=== PATIENT | female | born 1985 | race Caucasian/White ===

== ENCOUNTER 2017-06-04 16:59 | Inpatient (IN) | payer MEDICARE, MEDICAID ==
[~2017-06-04] VITALS: Ht 170.2 cm; Wt 132.3 kg
[2017-06-04] MEDS ORDERED: DILTIAZEM 125 MG in DEXTROSE 5% 100 ML IV SCH (17:18)
[2017-06-04] MEDS ORDERED: DILTIAZEM 5 MG/ML, 5ML IV ONE (17:30)
[2017-06-04] MEDS ORDERED: SODIUM CHLORIDE FLUSH 10ML SYR IVF ONE (17:30)
[2017-06-04 17:44] LABS: ABG COLLECTION SITE RIGHT BRACHIAL
[2017-06-04 17:46] LABS: HEMOGLOBIN 14.3 g/dL (11.7-16.4); WHITE BLOOD COUNT 17.8 x10^3/uL (3.4-10)
[2017-06-04] MEDS ORDERED: MORPHINE SULFATE 4 MG/ML, 1ML ONE (17:46)
[2017-06-04 17:54] LABS: ASPARTATE AMINO TRANSFERASE 73 U/L (15-37); BLOOD UREA NITROGEN 19 mg/dL (7-18)
[2017-06-04] MEDS ORDERED: ONDANSETRON 2MG/ML, 2ML ONE (17:56)
[2017-06-04] MEDS ORDERED: DILTIAZEM 5 MG/ML, 5ML ONE (17:57)
[2017-06-04] MEDS ORDERED: ONDANSETRON 2MG/ML, 2ML IVPush ONE (18:00)
[2017-06-04] MEDS ORDERED: MORPHINE SULFATE 4 MG/ML, 1ML IVPush PRN (18:00)
[2017-06-04] MEDS ORDERED: SODIUM CHLORIDE FLUSH 10ML SYR IVF PRN (19:00)
[2017-06-04] MEDS ORDERED: AZITHROMYCIN 500 MG in SODIUM CHLORIDE 0.9% 250 ML IVPB ONE (19:00)
[2017-06-04] MEDS ORDERED: CEFTRIAXONE PMX 1GM/50ML 50 ML IVPB ONE (19:00)
[2017-06-04] MEDS ORDERED: SODIUM CHLORIDE 0.9% 1,000 ML IV SCH (19:19)
[2017-06-04] MEDS ORDERED: AZITHROMYCIN 500 MG in SODIUM CHLORIDE 0.9% 250 ML IV SCH (19:30)
[2017-06-04] MEDS ORDERED: POLYETHYLENE GLYCOL 17 GM PACKET PO PRN (19:30)
[2017-06-04] MEDS ORDERED: ENOXAPARIN 40 MG/0.4 ML SQ SCH (19:30)
[2017-06-04] MEDS ORDERED: ACETAMINOPHEN 325 MG TABLET PO PRN (19:30)
[2017-06-04] MEDS ORDERED: DOCUSATE 100 MG CAPSULE PO PRN (19:30)
[2017-06-04] MEDS ORDERED: morphine SULFATE 10 MG/ML, 1ML IVPush PRN (19:30)
[2017-06-04] MEDS ORDERED: CEFTRIAXONE PMX 1GM/50ML 50 ML IV SCH (19:30)
[2017-06-04] MEDS ORDERED: CEFTRIAXONE PMX 1GM/50ML 50 ML ONE (19:43)
[2017-06-04 20:30] VITALS: BP 133/96
[2017-06-04 21:00] VITALS: BP 130/91
[2017-06-04] MEDS: OXYcodone IR 5MG TABLET PO PRN ×2 (21:28→22:46)
[2017-06-04] MEDS: FAMOTIDINE 20 MG TABLET PO SCH (21:29)
[2017-06-04] MEDS: INSULIN ASPART 100 UNITS/ML, PEN SQ-INSULIN SCH (21:30)
[2017-06-04] MEDS: ONDANSETRON 2MG/ML, 2ML IVPush PRN (22:45)
[2017-06-05] MEDS ORDERED: MAGN400T36 PO (03:40)
[2017-06-05] MEDS ORDERED: POTA20LI GT (03:40)
[2017-06-05] MEDS ORDERED: APIX5TAB PO (03:40)
[2017-06-05] MEDS ORDERED: ERGO500018 PO (03:40)
[2017-06-05] MEDS ORDERED: BUSP5TAB2 PO (03:40)
[2017-06-05] MEDS ORDERED: LACT1CAP20 PO (03:40)
[2017-06-05] MEDS ORDERED: DIGO250T86 GT (03:40)
[2017-06-05] MEDS ORDERED: OXYC5TAB2 PO (03:40)
[2017-06-05] MEDS ORDERED: LORA10TA3 PO (03:40)
[2017-06-05] MEDS ORDERED: BACL-19 PO (03:40)
[2017-06-05] MEDS ORDERED: FERR300L PO (03:40)
[2017-06-05] MEDS ORDERED: FURO-92 PO (03:40)
[2017-06-05] MEDS ORDERED: CALC-451 PO (03:40)
[2017-06-05] MEDS ORDERED: TRAM50TA2 PO (03:40)
[2017-06-05] MEDS ORDERED: GABA300S GT (03:40)
[2017-06-05] MEDS ORDERED: DEXL30CA2 PO (03:40)
[2017-06-05] MEDS ORDERED: DILT120T4 PO (03:40)
[2017-06-05] MEDS ORDERED: [UNRECOGNIZED DRUG - CODE] PO (03:40)
[2017-06-05] MEDS ORDERED: ONDA4TAB7 PO (03:40)
[2017-06-05] MEDS ORDERED: VENL37.52 PO (03:40)
[2017-06-05] MEDS ORDERED: MICO142C TP (03:40)
[2017-06-05] MEDS ORDERED: CLOT15CR5 TP (03:40)
[2017-06-05] MEDS ORDERED: ALPR0.25 PO (03:40)
[2017-06-05] MEDS ORDERED: MV-M1TAB3 GT (03:40)
[2017-06-05] MEDS ORDERED: METO50TA3 GT (03:40)
[2017-06-05] MEDS: DILTIAZEM 125 MG in SODIUM CHLORIDE 0.9% 100 ML IV PRN ×2 (04:14→12:49)
[2017-06-05 04:30] VITALS: BP 128/76
[2017-06-05 04:44] LABS: HEMATOCRIT 41.7 % (34.6-47.8); HEMOGLOBIN 13.4 g/dL (11.7-16.4); WHITE BLOOD COUNT 21.7 x10^3/uL (3.4-10)
[2017-06-05 04:54] LABS: ASPARTATE AMINO TRANSFERASE 58 U/L (15-37); BLOOD UREA NITROGEN 15 mg/dL (7-18)
[2017-06-05 05:45] LABS: ABG COLLECTION SITE RIGHT RADIAL; COLLATERAL CIRCULATION TESTING NORMAL
[2017-06-05] MEDS: INSULIN ASPART 100 UNITS/ML, PEN SQ-INSULIN SCH ×4 (06:25→21:40)
[2017-06-05] MEDS ORDERED: VANCOMYCIN PER PHARMACY MC PRN (07:30)
[2017-06-05] MEDS ORDERED: PHARMACOKINETIC MONITORING MC PRN (07:30)
[2017-06-05] MEDS ORDERED: VANCOMYCIN 1,400 MG in SODIUM CHLORIDE 0.9% 250 ML IV SCH (08:00)
[2017-06-05] MEDS ORDERED: OXYcodone IR 5MG TABLET PO PRN (08:30)
[2017-06-05] MEDS ORDERED: LORATADINE 10 MG TABLET PO SCH (09:00)
[2017-06-05] MEDS ORDERED: DIGOXIN 0.25 MG TABLET GT SCH (09:00)
[2017-06-05] MEDS ORDERED: FERROUS SULFATE 220 MG/5 ML ORAL SOL PO SCH (09:00)
[2017-06-05] MEDS ORDERED: SENNA/DOCUSATE TABLET PO SCH (09:00)
[2017-06-05] MEDS: DEXLANSOPRAZOLE 30 MG PO SCH (09:00)
[2017-06-05] MEDS: LACTOBACILLUS 1GM/ PACKET PO SCH (09:00)
[2017-06-05] MEDS: OXYcodone IR 5MG TABLET PO PRN ×3 (10:50→20:37)
[2017-06-05] MEDS: GABAPENTIN 250 MG/5 ML ORAL SOL GT SCH ×3 (10:59→20:30)
[2017-06-05] MEDS: APIXABAN 5 MG TABLET PO SCH ×2 (11:00→20:29)
[2017-06-05] MEDS: FAMOTIDINE 20 MG TABLET PO SCH ×2 (11:00→20:30)
[2017-06-05] MEDS: BUSPIRONE 5 MG TABLET PO SCH ×3 (11:01→20:29)
[2017-06-05] MEDS: BACLOFEN 10 MG TABLET PO SCH ×2 (11:01→20:29)
[2017-06-05] MEDS: METOPROLOL TARTRATE 50 MG TABLET GT SCH ×2 (11:01→20:29)
[2017-06-05] MEDS: CLOTRIMAZOLE CRM 1%, 15GM TP SCH ×2 (11:08→20:30)
[2017-06-05] MEDS: DILTIAZEM 120 MG TABLET PO SCH ×3 (11:08→20:29)
[2017-06-05] MEDS: VENLAFAXINE XR 37.5MG CAP.ER.24H PO SCH ×2 (11:09→20:30)
[2017-06-05] MEDS: MICONAZOLE CRM 2%, 15GM TP SCH ×2 (11:09→20:30)
[2017-06-05] MEDS: ONDANSETRON 2MG/ML, 2ML IVPush PRN (12:16)
[2017-06-05] MEDS: PIPERACILLIN/TAZO/PMX 3.375GM 50 ML IV SCH ×2 (12:54→20:29)
[2017-06-05] MEDS: LINEZOLID PMX 600MG/300ML 300 ML IV SCH (14:52)
[2017-06-05] MEDS ORDERED: ALBUTEROL SULFATE 2.5 MG/3 ML NPPB SCH (15:00)
[2017-06-05] MEDS ORDERED: ALBUTEROL/IPRATROPIUM 2.5MG/0.5MG, 3 ML ONE (18:26)
[2017-06-05] MEDS: ALBUTEROL SULFATE 2.5 MG/3 ML NPPB SCH ×2 (19:11→21:00)
[2017-06-06] MEDS: PIPERACILLIN/TAZO/PMX 3.375GM 50 ML IV SCH ×4 (01:04→23:22)
[2017-06-06] MEDS: LINEZOLID PMX 600MG/300ML 300 ML IV SCH ×2 (01:31→14:31)
[2017-06-06] MEDS: OXYcodone IR 5MG TABLET PO PRN ×2 (03:24→09:16)
[2017-06-06 04:00] VITALS: BP 125/60
[2017-06-06 04:45] LABS: HEMATOCRIT 40.9 % (34.6-47.8); HEMOGLOBIN 13.1 g/dL (11.7-16.4)
[2017-06-06 04:50] LABS: BLOOD UREA NITROGEN 12 mg/dL (7-18)
[2017-06-06] MEDS: INSULIN ASPART 100 UNITS/ML, PEN SQ-INSULIN SCH ×4 (05:21→21:00)
[2017-06-06] MEDS: DILTIAZEM 120 MG TABLET PO SCH ×4 (05:21→21:00)
[2017-06-06 05:39] LABS: ABG COLLECTION SITE RIGHT RADIAL; COLLATERAL CIRCULATION TESTING NORMAL
[2017-06-06] MEDS ORDERED: DIGOXIN PED GT SCH (09:00)
[2017-06-06] MEDS: FERROUS SULFATE 220 MG/5 ML ORAL SOL PEG SCH (09:00)
[2017-06-06] MEDS ORDERED: DOCUSATE 50 MG/5 ML, 10ML UDC PEG PRN ×2 (09:00→09:30)
[2017-06-06] MEDS: ALBUTEROL SULFATE 2.5 MG/3 ML NPPB SCH (09:00)
[2017-06-06] MEDS ORDERED: FAMOTIDINE 40 MG/5 ML ORAL SUSP PO SCH (09:00)
[2017-06-06] MEDS ORDERED: FAMOTIDINE 40 MG/5 ML ORAL SUSP PEG SCH (09:00)
[2017-06-06] MEDS: LACTOBACILLUS 1GM/ PACKET PO SCH (09:00)
[2017-06-06] MEDS ORDERED: SENNA 176 MG/5 ML ORAL SOL PEG SCH (09:00)
[2017-06-06] MEDS: DEXLANSOPRAZOLE 30 MG PO SCH (09:00)
[2017-06-06] MEDS ORDERED: CETIRIZINE 1 MG/ML ORAL SOL PEG SCH (09:00)
[2017-06-06] MEDS ORDERED: ACETAMINOPHEN 650 MG/20.3 ML UDC PO PRN (09:00)
[2017-06-06] MEDS: GABAPENTIN 250 MG/5 ML ORAL SOL GT SCH ×3 (09:19→23:19)
[2017-06-06] MEDS: APIXABAN 5 MG TABLET PO SCH ×2 (09:22→23:20)
[2017-06-06] MEDS: METOPROLOL TARTRATE 50 MG TABLET GT SCH ×2 (09:23→23:20)
[2017-06-06] MEDS: BACLOFEN 10 MG TABLET PO SCH ×2 (09:25→23:19)
[2017-06-06] MEDS: BUSPIRONE 5 MG TABLET PO SCH ×3 (09:25→23:20)
[2017-06-06] MEDS: VENLAFAXINE XR 37.5MG CAP.ER.24H PO SCH ×2 (09:26→21:00)
[2017-06-06] MEDS: CLOTRIMAZOLE CRM 1%, 15GM TP SCH ×2 (09:27→23:20)
[2017-06-06] MEDS: MICONAZOLE CRM 2%, 15GM TP SCH ×2 (09:27→23:21)
[2017-06-06 10:44] LABS: ABG COLLECTION SITE RIGHT RADIAL; COLLATERAL CIRCULATION TESTING NORMAL
[2017-06-06 17:17] LABS: ABG COLLECTION SITE LEFT RADIAL; COLLATERAL CIRCULATION TESTING NORMAL
[2017-06-06] MEDS ORDERED: ALBUTEROL SULFATE 2.5 MG/3 ML ONE (18:23)
[2017-06-06] MEDS: FAMOTIDINE 40 MG/5 ML ORAL SUSP PEG SCH (21:00)
[2017-06-07] MEDS: PIPERACILLIN/TAZO/PMX 3.375GM 50 ML IV SCH ×4 (01:49→19:40)
[2017-06-07] MEDS: LINEZOLID PMX 600MG/300ML 300 ML IV SCH ×2 (02:24→14:16)
[2017-06-07 03:59] VITALS: BP_SYST 104; BP_SYST 83; BP_DIAS 42; BP_DIAS 51
[2017-06-07 04:31] LABS: ABG COLLECTION SITE LEFT RADIAL; COLLATERAL CIRCULATION TESTING NORMAL
[2017-06-07] MEDS: DILTIAZEM 120 MG TABLET PO SCH ×4 (05:49→20:29)
[2017-06-07] MEDS: SENNA 176 MG/5 ML ORAL SOL PEG SCH (08:47)
[2017-06-07] MEDS: GABAPENTIN 250 MG/5 ML ORAL SOL GT SCH ×3 (08:47→20:29)
[2017-06-07] MEDS: CETIRIZINE 1 MG/ML ORAL SOL PEG SCH (08:47)
[2017-06-07] MEDS: FAMOTIDINE 40 MG/5 ML ORAL SUSP PEG SCH ×2 (08:48→20:29)
[2017-06-07] MEDS: LACTOBACILLUS 1GM/ PACKET PO SCH (08:48)
[2017-06-07] MEDS: METOPROLOL TARTRATE 50 MG TABLET GT SCH ×2 (08:48→20:30)
[2017-06-07] MEDS: FERROUS SULFATE 220 MG/5 ML ORAL SOL PEG SCH (08:48)
[2017-06-07] MEDS: BACLOFEN 10 MG TABLET PO SCH ×2 (08:49→20:29)
[2017-06-07] MEDS: BUSPIRONE 5 MG TABLET PO SCH ×3 (08:49→20:33)
[2017-06-07] MEDS: DIGOXIN PED GT SCH (08:50)
[2017-06-07] MEDS: VENLAFAXINE XR 37.5MG CAP.ER.24H PO SCH ×2 (08:50→20:34)
[2017-06-07] MEDS: DEXLANSOPRAZOLE 30 MG PO SCH (09:00)
[2017-06-07] MEDS: MICONAZOLE CRM 2%, 15GM TP SCH ×2 (09:02→20:34)
[2017-06-07] MEDS: CLOTRIMAZOLE CRM 1%, 15GM TP SCH ×2 (09:02→20:34)
[2017-06-07] MEDS: INSULIN ASPART 100 UNITS/ML, PEN SQ-INSULIN SCH ×4 (10:45→21:26)
[2017-06-07 12:02] LABS: ABG COLLECTION SITE RIGHT RADIAL; COLLATERAL CIRCULATION TESTING NORMAL
[2017-06-07] MEDS: OXYcodone 5 MG/5 ML ORAL.SOL UDC PEG PRN ×2 (12:33→19:39)
[2017-06-07] MEDS: APIXABAN 5 MG TABLET PO SCH ×2 (17:40→20:30)
[2017-06-07] MEDS: ONDANSETRON 2MG/ML, 2ML IVPush PRN (20:30)
[2017-06-08] MEDS: PIPERACILLIN/TAZO/PMX 3.375GM 50 ML IV SCH ×4 (01:31→20:05)
[2017-06-08] MEDS: LINEZOLID PMX 600MG/300ML 300 ML IV SCH ×2 (02:27→14:54)
[2017-06-08 04:24] VITALS: BP 104/69
[2017-06-08 04:32] LABS: HEMATOCRIT 40.3 % (34.6-47.8); HEMOGLOBIN 12.8 g/dL (11.7-16.4); WHITE BLOOD COUNT 10.5 x10^3/uL (3.4-10)
[2017-06-08 04:39] LABS: BLOOD UREA NITROGEN 12 mg/dL (7-18)
[2017-06-08 04:42] LABS: ASPARTATE AMINO TRANSFERASE 38 U/L (15-37)
[2017-06-08] MEDS: DILTIAZEM 120 MG TABLET PO SCH ×2 (05:50→09:01)
[2017-06-08] MEDS: OXYcodone 5 MG/5 ML ORAL.SOL UDC PEG PRN ×3 (06:07→20:05)
[2017-06-08] MEDS: INSULIN ASPART 100 UNITS/ML, PEN SQ-INSULIN SCH ×4 (06:39→21:00)
[2017-06-08] MEDS: CLOTRIMAZOLE CRM 1%, 15GM TP SCH ×2 (08:56→21:28)
[2017-06-08] MEDS: MICONAZOLE CRM 2%, 15GM TP SCH ×2 (08:56→21:28)
[2017-06-08] MEDS: CETIRIZINE 1 MG/ML ORAL SOL PEG SCH (08:56)
[2017-06-08] MEDS: GABAPENTIN 250 MG/5 ML ORAL SOL GT SCH ×3 (08:56→21:26)
[2017-06-08] MEDS: SENNA 176 MG/5 ML ORAL SOL PEG SCH (08:57)
[2017-06-08] MEDS: LACTOBACILLUS 1GM/ PACKET PO SCH (08:57)
[2017-06-08] MEDS: BUSPIRONE 5 MG TABLET PO SCH ×3 (08:57→21:25)
[2017-06-08] MEDS: BACLOFEN 10 MG TABLET PO SCH ×2 (08:57→21:25)
[2017-06-08] MEDS: APIXABAN 5 MG TABLET PO SCH ×2 (08:57→21:25)
[2017-06-08] MEDS: VENLAFAXINE XR 37.5MG CAP.ER.24H PO SCH ×2 (08:58→21:00)
[2017-06-08] MEDS: DIGOXIN PED GT SCH (09:00)
[2017-06-08] MEDS: DEXLANSOPRAZOLE 30 MG PO SCH (09:00)
[2017-06-08] MEDS: FERROUS SULFATE 220 MG/5 ML ORAL SOL PEG SCH (09:00)
[2017-06-08] MEDS: METOPROLOL TARTRATE 50 MG TABLET GT SCH ×2 (09:01→21:26)
[2017-06-08] MEDS: FAMOTIDINE 40 MG/5 ML ORAL SUSP PEG SCH ×2 (09:02→21:26)
[2017-06-08] MEDS ORDERED: FUROSEMIDE 40 MG/4 ML IV ONE (09:30)
[2017-06-08] MEDS: DILTIAZEM 60 MG TABLET PO SCH ×2 (16:00→21:00)
[2017-06-09] MEDS: PIPERACILLIN/TAZO/PMX 3.375GM 50 ML IV SCH (01:09)
[2017-06-09] MEDS: LINEZOLID PMX 600MG/300ML 300 ML IV SCH ×2 (02:22→14:37)
[2017-06-09 04:00] VITALS: BP 109/62
[2017-06-09 04:29] LABS: HEMATOCRIT 40.9 % (34.6-47.8); WHITE BLOOD COUNT 10.2 x10^3/uL (3.4-10)
[2017-06-09 04:37] LABS: BLOOD UREA NITROGEN 13 mg/dL (7-18)
[2017-06-09 04:40] LABS: ASPARTATE AMINO TRANSFERASE 80 U/L (15-37)
[2017-06-09] MEDS: DILTIAZEM 60 MG TABLET PO SCH ×4 (06:03→20:53)
[2017-06-09] MEDS: INSULIN ASPART 100 UNITS/ML, PEN SQ-INSULIN SCH ×4 (06:03→21:00)
[2017-06-09] MEDS: VENLAFAXINE XR 37.5MG CAP.ER.24H PO SCH ×2 (08:36→20:54)
[2017-06-09] MEDS: APIXABAN 5 MG TABLET PO SCH ×2 (08:37→20:53)
[2017-06-09] MEDS: LACTOBACILLUS 1GM/ PACKET PO SCH (08:37)
[2017-06-09] MEDS: FERROUS SULFATE 220 MG/5 ML ORAL SOL PEG SCH (08:38)
[2017-06-09] MEDS: BACLOFEN 10 MG TABLET PO SCH ×2 (08:38→20:53)
[2017-06-09] MEDS: CETIRIZINE 1 MG/ML ORAL SOL PEG SCH (08:38)
[2017-06-09] MEDS: BUSPIRONE 5 MG TABLET PO SCH ×3 (08:38→20:53)
[2017-06-09] MEDS: METOPROLOL TARTRATE 50 MG TABLET GT SCH ×2 (08:38→20:54)
[2017-06-09] MEDS: GABAPENTIN 250 MG/5 ML ORAL SOL GT SCH ×3 (08:39→20:53)
[2017-06-09] MEDS: FAMOTIDINE 40 MG/5 ML ORAL SUSP PEG SCH ×2 (08:39→20:53)
[2017-06-09] MEDS: SENNA 176 MG/5 ML ORAL SOL PEG SCH (08:39)
[2017-06-09] MEDS: DIGOXIN PED GT SCH (08:39)
[2017-06-09] MEDS: MICONAZOLE CRM 2%, 15GM TP SCH ×2 (08:40→21:00)
[2017-06-09] MEDS: CLOTRIMAZOLE CRM 1%, 15GM TP SCH ×2 (08:40→20:55)
[2017-06-09] MEDS: OXYcodone 5 MG/5 ML ORAL.SOL UDC PEG PRN ×3 (08:41→20:54)
[2017-06-09] MEDS: MEROPENEM 1 GM in SODIUM CHLORIDE 0.9% 100 ML IV SCH ×2 (08:46→16:28)
[2017-06-09] MEDS: DEXLANSOPRAZOLE 30 MG PO SCH (09:00)
[2017-06-09] MEDS: ONDANSETRON 2MG/ML, 2ML IVPush PRN (16:28)
[2017-06-10] MEDS: MEROPENEM 1 GM in SODIUM CHLORIDE 0.9% 100 ML IV SCH ×3 (00:50→16:09)
[2017-06-10] MEDS: LINEZOLID PMX 600MG/300ML 300 ML IV SCH ×2 (02:04→14:52)
[2017-06-10] MEDS: OXYcodone 5 MG/5 ML ORAL.SOL UDC PEG PRN ×3 (02:47→16:09)
[2017-06-10 04:00] VITALS: BP 113/68
[2017-06-10 04:26] LABS: HEMOGLOBIN 12.8 g/dL (11.7-16.4); WHITE BLOOD COUNT 10.5 x10^3/uL (3.4-10)
[2017-06-10 04:33] LABS: BLOOD UREA NITROGEN 17 mg/dL (7-18)
[2017-06-10] MEDS: DILTIAZEM 60 MG TABLET PO SCH ×4 (05:12→21:15)
[2017-06-10] MEDS: INSULIN ASPART 100 UNITS/ML, PEN SQ-INSULIN SCH ×4 (05:12→20:52)
[2017-06-10 05:41] LABS: ABG COLLECTION SITE RIGHT RADIAL; COLLATERAL CIRCULATION TESTING NORMAL
[2017-06-10 05:49] LABS: FIO2 50 %
[2017-06-10] MEDS: GABAPENTIN 250 MG/5 ML ORAL SOL GT SCH ×3 (11:09→21:19)
[2017-06-10] MEDS: LACTOBACILLUS 1GM/ PACKET PO SCH (11:09)
[2017-06-10] MEDS: CETIRIZINE 1 MG/ML ORAL SOL PEG SCH (11:10)
[2017-06-10] MEDS: FAMOTIDINE 40 MG/5 ML ORAL SUSP PEG SCH ×2 (11:10→21:19)
[2017-06-10] MEDS: SENNA 176 MG/5 ML ORAL SOL PEG SCH (11:10)
[2017-06-10] MEDS: FERROUS SULFATE 220 MG/5 ML ORAL SOL PEG SCH (11:11)
[2017-06-10] MEDS: DIGOXIN PED GT SCH (11:11)
[2017-06-10] MEDS: VENLAFAXINE XR 37.5MG CAP.ER.24H PO SCH ×2 (11:11→21:18)
[2017-06-10] MEDS: BUSPIRONE 5 MG TABLET PO SCH ×3 (11:12→21:16)
[2017-06-10] MEDS: BACLOFEN 10 MG TABLET PO SCH ×2 (11:12→21:15)
[2017-06-10] MEDS: APIXABAN 5 MG TABLET PO SCH ×2 (11:13→21:15)
[2017-06-10] MEDS: CLOTRIMAZOLE CRM 1%, 15GM TP SCH ×2 (11:14→21:19)
[2017-06-10] MEDS: METOPROLOL TARTRATE 50 MG TABLET GT SCH ×2 (11:14→21:16)
[2017-06-10] MEDS: MICONAZOLE CRM 2%, 15GM TP SCH ×2 (11:16→21:19)
[2017-06-11] MEDS: MEROPENEM 1 GM in SODIUM CHLORIDE 0.9% 100 ML IV SCH ×3 (01:14→17:28)
[2017-06-11] MEDS: OXYcodone 5 MG/5 ML ORAL.SOL UDC PEG PRN ×3 (01:33→15:22)
[2017-06-11] MEDS: LINEZOLID PMX 600MG/300ML 300 ML IV SCH ×2 (02:28→14:00)
[2017-06-11 04:36] LABS: HEMATOCRIT 39.1 % (34.6-47.8); HEMOGLOBIN 12.3 g/dL (11.7-16.4); WHITE BLOOD COUNT 9.5 x10^3/uL (3.4-10)
[2017-06-11 04:43] LABS: BLOOD UREA NITROGEN 19 mg/dL (7-18)
[2017-06-11 04:50] LABS: ASPARTATE AMINO TRANSFERASE 118 U/L (15-37)
[2017-06-11] MEDS: DILTIAZEM 60 MG TABLET PO SCH (06:26)
[2017-06-11 06:28] VITALS: BP 130/75
[2017-06-11] MEDS: INSULIN ASPART 100 UNITS/ML, PEN SQ-INSULIN SCH ×4 (07:00→21:00)
[2017-06-11 07:41] LABS: ABG COLLECTION SITE LEFT RADIAL; COLLATERAL CIRCULATION TESTING NORMAL
[2017-06-11] MEDS: AcetaZOLAMIDE INJ 500 MG IVPush SCH ×2 (09:07→21:48)
[2017-06-11] MEDS: GABAPENTIN 250 MG/5 ML ORAL SOL GT SCH ×3 (09:09→21:48)
[2017-06-11] MEDS: FERROUS SULFATE 220 MG/5 ML ORAL SOL PEG SCH (09:09)
[2017-06-11] MEDS: FAMOTIDINE 40 MG/5 ML ORAL SUSP PEG SCH ×2 (09:09→21:49)
[2017-06-11] MEDS: SENNA 176 MG/5 ML ORAL SOL PEG SCH (09:09)
[2017-06-11] MEDS: CETIRIZINE 1 MG/ML ORAL SOL PEG SCH (09:09)
[2017-06-11] MEDS: DIGOXIN PED GT SCH (09:09)
[2017-06-11] MEDS: BACLOFEN 10 MG TABLET PO SCH ×2 (09:10→21:49)
[2017-06-11] MEDS: LACTOBACILLUS 1GM/ PACKET PO SCH (09:10)
[2017-06-11] MEDS: VENLAFAXINE XR 37.5MG CAP.ER.24H PO SCH ×2 (09:10→21:50)
[2017-06-11] MEDS: CLOTRIMAZOLE CRM 1%, 15GM TP SCH ×2 (09:11→21:50)
[2017-06-11] MEDS: METOPROLOL TARTRATE 50 MG TABLET GT SCH ×2 (09:11→21:49)
[2017-06-11] MEDS: BUSPIRONE 5 MG TABLET PO SCH ×3 (09:11→21:50)
[2017-06-11] MEDS: APIXABAN 5 MG TABLET PO SCH ×2 (09:11→21:49)
[2017-06-11] MEDS: MICONAZOLE CRM 2%, 15GM TP SCH ×2 (09:11→21:50)
[2017-06-11] MEDS: ONDANSETRON 2MG/ML, 2ML IVPush PRN (18:22)
[2017-06-12] MEDS: MEROPENEM 1 GM in SODIUM CHLORIDE 0.9% 100 ML IV SCH ×3 (01:45→16:09)
[2017-06-12] MEDS: OXYcodone 5 MG/5 ML ORAL.SOL UDC PEG PRN ×4 (01:56→20:26)
[2017-06-12] MEDS: LINEZOLID PMX 600MG/300ML 300 ML IV SCH ×2 (02:41→14:06)
[2017-06-12 04:54] LABS: ABG COLLECTION SITE RIGHT RADIAL; COLLATERAL CIRCULATION TESTING NORMAL
[2017-06-12 05:00] LABS: HEMATOCRIT 42.7 % (34.6-47.8); HEMOGLOBIN 13.3 g/dL (11.7-16.4); WHITE BLOOD COUNT 11.4 x10^3/uL (3.4-10)
[2017-06-12 05:06] LABS: BLOOD UREA NITROGEN 16 mg/dL (7-18)
[2017-06-12 05:10] LABS: ASPARTATE AMINO TRANSFERASE 146 U/L (15-37)
[2017-06-12] MEDS: METOPROLOL TARTRATE 50 MG TABLET GT SCH ×2 (06:49→21:25)
[2017-06-12] MEDS: INSULIN ASPART 100 UNITS/ML, PEN SQ-INSULIN SCH ×4 (07:00→21:00)
[2017-06-12] MEDS: BUSPIRONE 5 MG TABLET PO SCH ×3 (07:55→21:25)
[2017-06-12] MEDS: CETIRIZINE 1 MG/ML ORAL SOL PEG SCH (07:56)
[2017-06-12] MEDS: DIGOXIN PED GT SCH (07:56)
[2017-06-12] MEDS: LACTOBACILLUS 1GM/ PACKET PO SCH (07:56)
[2017-06-12] MEDS: GABAPENTIN 250 MG/5 ML ORAL SOL GT SCH ×3 (07:56→21:41)
[2017-06-12] MEDS: FAMOTIDINE 40 MG/5 ML ORAL SUSP PEG SCH ×2 (07:56→21:25)
[2017-06-12] MEDS: SENNA 176 MG/5 ML ORAL SOL PEG SCH (07:56)
[2017-06-12] MEDS: FERROUS SULFATE 220 MG/5 ML ORAL SOL PEG SCH (07:56)
[2017-06-12] MEDS: VENLAFAXINE XR 37.5MG CAP.ER.24H PO SCH ×2 (07:56→21:26)
[2017-06-12] MEDS: APIXABAN 5 MG TABLET PO SCH ×2 (07:57→21:26)
[2017-06-12] MEDS: BACLOFEN 10 MG TABLET PO SCH ×2 (08:08→21:26)
[2017-06-12] MEDS: DILTIAZEM 30 MG TABLET PO SCH ×3 (08:41→20:05)
[2017-06-12] MEDS: MICONAZOLE CRM 2%, 15GM TP SCH ×2 (08:41→21:27)
[2017-06-12] MEDS: CLOTRIMAZOLE CRM 1%, 15GM TP SCH ×2 (09:00→21:28)
[2017-06-12] MEDS: ACETAMINOPHEN 650 MG/20.3 ML UDC PEG PRN (17:24)
[2017-06-13] MEDS: MEROPENEM 1 GM in SODIUM CHLORIDE 0.9% 100 ML IV SCH ×3 (01:19→17:02)
[2017-06-13] MEDS: LINEZOLID PMX 600MG/300ML 300 ML IV SCH ×2 (02:15→15:06)
[2017-06-13] MEDS: DILTIAZEM 30 MG TABLET PO SCH ×4 (02:15→21:46)
[2017-06-13 04:37] LABS: HEMATOCRIT 39.7 % (34.6-47.8); HEMOGLOBIN 12.6 g/dL (11.7-16.4); WHITE BLOOD COUNT 9.8 x10^3/uL (3.4-10)
[2017-06-13 04:49] LABS: ASPARTATE AMINO TRANSFERASE 152 U/L (15-37); BLOOD UREA NITROGEN 19 mg/dL (7-18)
[2017-06-13] MEDS: INSULIN ASPART 100 UNITS/ML, PEN SQ-INSULIN SCH ×4 (07:00→21:00)
[2017-06-13] MEDS: OXYcodone 5 MG/5 ML ORAL.SOL UDC PEG PRN ×4 (07:12→21:46)
[2017-06-13 08:54] LABS: ABG COLLECTION SITE RIGHT RADIAL; COLLATERAL CIRCULATION TESTING NORMAL
[2017-06-13] MEDS: FAMOTIDINE 40 MG/5 ML ORAL SUSP PEG SCH ×2 (09:32→21:47)
[2017-06-13] MEDS: GABAPENTIN 250 MG/5 ML ORAL SOL GT SCH ×3 (09:32→21:47)
[2017-06-13] MEDS: SENNA 176 MG/5 ML ORAL SOL PEG SCH (09:32)
[2017-06-13] MEDS: LACTOBACILLUS 1GM/ PACKET PO SCH (09:32)
[2017-06-13] MEDS: FERROUS SULFATE 220 MG/5 ML ORAL SOL PEG SCH (09:32)
[2017-06-13] MEDS: CETIRIZINE 1 MG/ML ORAL SOL PEG SCH (09:32)
[2017-06-13] MEDS: DIGOXIN PED GT SCH (09:32)
[2017-06-13] MEDS: METOPROLOL TARTRATE 50 MG TABLET GT SCH ×2 (09:33→21:46)
[2017-06-13] MEDS: APIXABAN 5 MG TABLET PO SCH ×2 (09:33→21:46)
[2017-06-13] MEDS: BUSPIRONE 5 MG TABLET PO SCH ×3 (09:34→21:46)
[2017-06-13] MEDS: CLOTRIMAZOLE CRM 1%, 15GM TP SCH ×2 (09:34→21:48)
[2017-06-13] MEDS: MICONAZOLE CRM 2%, 15GM TP SCH ×2 (09:34→21:48)
[2017-06-13] MEDS: BACLOFEN 10 MG TABLET PO SCH ×2 (09:50→21:46)
[2017-06-13] MEDS: VENLAFAXINE XR 37.5MG CAP.ER.24H PO SCH ×2 (09:51→21:47)
[2017-06-13] MEDS: ONDANSETRON 2MG/ML, 2ML IVPush PRN (10:01)
[2017-06-13] MEDS: methylPREDNISolone SOD SUCC 125 MG/2 ML IVPush SCH ×3 (11:48→23:48)
[2017-06-13] MEDS: ACETAMINOPHEN 650 MG/20.3 ML UDC PEG PRN (20:36)
[2017-06-14] MEDS: MEROPENEM 1 GM in SODIUM CHLORIDE 0.9% 100 ML IV SCH ×3 (01:02→17:59)
[2017-06-14] MEDS: DILTIAZEM 30 MG TABLET PO SCH ×4 (02:17→21:12)
[2017-06-14] MEDS: LINEZOLID PMX 600MG/300ML 300 ML IV SCH ×2 (02:18→14:49)
[2017-06-14 04:30] LABS: ABG COLLECTION SITE RIGHT RADIAL; COLLATERAL CIRCULATION TESTING NORMAL
[2017-06-14] MEDS: methylPREDNISolone SOD SUCC 125 MG/2 ML IVPush SCH ×4 (05:47→23:55)
[2017-06-14] MEDS: INSULIN ASPART 100 UNITS/ML, PEN SQ-INSULIN SCH ×4 (05:49→21:20)
[2017-06-14] MEDS: SENNA 176 MG/5 ML ORAL SOL PEG SCH ×2 (09:00→09:12)
[2017-06-14] MEDS: ONDANSETRON 2MG/ML, 2ML IVPush PRN (09:02)
[2017-06-14] MEDS: OXYcodone 5 MG/5 ML ORAL.SOL UDC PEG PRN ×4 (09:09→23:56)
[2017-06-14] MEDS: FAMOTIDINE 40 MG/5 ML ORAL SUSP PEG SCH ×2 (09:09→21:13)
[2017-06-14] MEDS: VENLAFAXINE XR 37.5MG CAP.ER.24H PO SCH ×2 (09:09→21:16)
[2017-06-14] MEDS: DIGOXIN PED GT SCH (09:10)
[2017-06-14] MEDS: CETIRIZINE 1 MG/ML ORAL SOL PEG SCH (09:12)
[2017-06-14] MEDS: FERROUS SULFATE 220 MG/5 ML ORAL SOL PEG SCH (09:12)
[2017-06-14] MEDS: CLOTRIMAZOLE CRM 1%, 15GM TP SCH ×2 (09:13→21:30)
[2017-06-14] MEDS: MICONAZOLE CRM 2%, 15GM TP SCH ×2 (09:13→21:30)
[2017-06-14] MEDS: GABAPENTIN 250 MG/5 ML ORAL SOL GT SCH ×3 (09:13→21:13)
[2017-06-14] MEDS: APIXABAN 5 MG TABLET PO SCH ×2 (09:14→21:12)
[2017-06-14] MEDS: LACTOBACILLUS 1GM/ PACKET PO SCH (09:14)
[2017-06-14] MEDS: BACLOFEN 10 MG TABLET PO SCH ×2 (09:14→21:12)
[2017-06-14] MEDS: BUSPIRONE 5 MG TABLET PO SCH ×3 (09:14→21:12)
[2017-06-14] MEDS: METOPROLOL TARTRATE 50 MG TABLET GT SCH ×2 (09:14→21:12)
[2017-06-15] MEDS: MEROPENEM 1 GM in SODIUM CHLORIDE 0.9% 100 ML IV SCH ×3 (03:01→17:00)
[2017-06-15] MEDS: LINEZOLID PMX 600MG/300ML 300 ML IV SCH ×2 (03:56→13:24)
[2017-06-15 04:32] LABS: HEMATOCRIT 41.5 % (34.6-47.8); WHITE BLOOD COUNT 10.1 x10^3/uL (3.4-10)
[2017-06-15] MEDS: DILTIAZEM 30 MG TABLET PO SCH ×4 (04:39→21:58)
[2017-06-15] MEDS: OXYcodone 5 MG/5 ML ORAL.SOL UDC PEG PRN ×4 (04:43→18:44)
[2017-06-15 04:44] LABS: BLOOD UREA NITROGEN 24 mg/dL (7-18)
[2017-06-15 04:59] LABS: ASPARTATE AMINO TRANSFERASE 143 U/L (15-37)
[2017-06-15] MEDS: methylPREDNISolone SOD SUCC 125 MG/2 ML IVPush SCH (05:57)
[2017-06-15] MEDS: INSULIN ASPART 100 UNITS/ML, PEN SQ-INSULIN SCH ×4 (08:50→21:00)
[2017-06-15] MEDS: DIGOXIN PED GT SCH (08:56)
[2017-06-15] MEDS: METOPROLOL TARTRATE 50 MG TABLET GT SCH ×2 (08:56→21:57)
[2017-06-15] MEDS: FAMOTIDINE 40 MG/5 ML ORAL SUSP PEG SCH ×2 (08:57→21:58)
[2017-06-15] MEDS: FERROUS SULFATE 220 MG/5 ML ORAL SOL PEG SCH (08:57)
[2017-06-15] MEDS: SENNA 176 MG/5 ML ORAL SOL PEG SCH (08:57)
[2017-06-15] MEDS: BUSPIRONE 5 MG TABLET PO SCH ×3 (08:58→21:57)
[2017-06-15] MEDS: CETIRIZINE 1 MG/ML ORAL SOL PEG SCH (08:58)
[2017-06-15] MEDS: GABAPENTIN 250 MG/5 ML ORAL SOL GT SCH ×3 (08:58→21:58)
[2017-06-15] MEDS: BACLOFEN 10 MG TABLET PO SCH ×2 (08:59→21:58)
[2017-06-15] MEDS: VENLAFAXINE XR 37.5MG CAP.ER.24H PO SCH ×2 (08:59→21:58)
[2017-06-15] MEDS: LACTOBACILLUS 1GM/ PACKET PO SCH (08:59)
[2017-06-15] MEDS: APIXABAN 5 MG TABLET PO SCH ×2 (08:59→21:57)
[2017-06-15] MEDS: ONDANSETRON 2MG/ML, 2ML IVPush PRN (09:15)
[2017-06-15] MEDS: CLOTRIMAZOLE CRM 1%, 15GM TP SCH ×2 (09:30→21:00)
[2017-06-15] MEDS: MICONAZOLE CRM 2%, 15GM TP SCH ×2 (09:30→21:00)
[2017-06-15] MEDS: methylPREDNISolone SOD SUCC 40 MG/ML IVPush SCH ×2 (13:23→23:05)
[2017-06-16] MEDS ORDERED: DOCUSATE 50 MG/5 ML, 10ML UDC PEG PRN (01:30)
[2017-06-16] MEDS: MEROPENEM 1 GM in SODIUM CHLORIDE 0.9% 100 ML IV SCH ×3 (01:42→17:03)
[2017-06-16] MEDS: DILTIAZEM 30 MG TABLET PO SCH ×4 (02:55→22:08)
[2017-06-16] MEDS: OXYcodone 5 MG/5 ML ORAL.SOL UDC PEG PRN ×5 (02:55→23:15)
[2017-06-16] MEDS: LINEZOLID PMX 600MG/300ML 300 ML IV SCH ×2 (02:55→15:03)
[2017-06-16 04:57] LABS: ABG COLLECTION SITE LEFT RADIAL; COLLATERAL CIRCULATION TESTING NORMAL
[2017-06-16] MEDS: methylPREDNISolone SOD SUCC 40 MG/ML IVPush SCH ×3 (06:07→22:10)
[2017-06-16] MEDS: INSULIN ASPART 100 UNITS/ML, PEN SQ-INSULIN SCH ×4 (06:11→22:10)
[2017-06-16] MEDS: MICONAZOLE CRM 2%, 15GM TP SCH ×2 (09:00→22:11)
[2017-06-16] MEDS: SENNA 176 MG/5 ML ORAL SOL PEG SCH (09:00)
[2017-06-16] MEDS: CLOTRIMAZOLE CRM 1%, 15GM TP SCH ×2 (09:00→22:11)
[2017-06-16] MEDS: ONDANSETRON 2MG/ML, 2ML IVPush PRN (09:27)
[2017-06-16] MEDS: DIGOXIN PED GT SCH (09:35)
[2017-06-16] MEDS: FAMOTIDINE 40 MG/5 ML ORAL SUSP PEG SCH ×2 (09:36→22:09)
[2017-06-16] MEDS: FERROUS SULFATE 220 MG/5 ML ORAL SOL PEG SCH (09:36)
[2017-06-16] MEDS: GABAPENTIN 250 MG/5 ML ORAL SOL GT SCH ×3 (09:36→22:08)
[2017-06-16] MEDS: METOPROLOL TARTRATE 50 MG TABLET GT SCH ×2 (09:36→22:08)
[2017-06-16] MEDS: CETIRIZINE 1 MG/ML ORAL SOL PEG SCH (09:37)
[2017-06-16] MEDS: LACTOBACILLUS 1GM/ PACKET PO SCH (09:37)
[2017-06-16] MEDS: BUSPIRONE 5 MG TABLET PO SCH ×3 (09:37→22:09)
[2017-06-16] MEDS: VENLAFAXINE XR 37.5MG CAP.ER.24H PO SCH ×2 (09:37→22:09)
[2017-06-16] MEDS: APIXABAN 5 MG TABLET PO SCH ×2 (09:38→22:09)
[2017-06-16] MEDS: BACLOFEN 10 MG TABLET PO SCH ×2 (09:38→22:09)
[2017-06-16 12:45] LABS: DAU SCREEN DISCLAIMER
[2017-06-17] MEDS: MEROPENEM 1 GM in SODIUM CHLORIDE 0.9% 100 ML IV SCH ×3 (01:52→16:50)
[2017-06-17] MEDS: DILTIAZEM 30 MG TABLET PO SCH ×4 (02:29→21:43)
[2017-06-17] MEDS: LINEZOLID PMX 600MG/300ML 300 ML IV SCH ×2 (02:29→16:50)
[2017-06-17] MEDS: methylPREDNISolone SOD SUCC 40 MG/ML IVPush SCH ×3 (05:14→21:55)
[2017-06-17] MEDS: OXYcodone 5 MG/5 ML ORAL.SOL UDC PEG PRN ×4 (05:14→21:47)
[2017-06-17] MEDS: CLOTRIMAZOLE CRM 1%, 15GM TP SCH ×2 (09:00→21:55)
[2017-06-17] MEDS: VENLAFAXINE XR 37.5MG CAP.ER.24H PO SCH ×2 (09:00→21:55)
[2017-06-17] MEDS: SENNA 176 MG/5 ML ORAL SOL PEG SCH (09:00)
[2017-06-17] MEDS: LACTOBACILLUS 1GM/ PACKET PO SCH (09:00)
[2017-06-17] MEDS: GABAPENTIN 250 MG/5 ML ORAL SOL GT SCH ×3 (09:00→21:44)
[2017-06-17] MEDS: MICONAZOLE CRM 2%, 15GM TP SCH ×2 (09:00→21:48)
[2017-06-17] MEDS: BACLOFEN 10 MG TABLET PO SCH ×2 (09:01→21:46)
[2017-06-17] MEDS: APIXABAN 5 MG TABLET PO SCH ×2 (09:01→21:43)
[2017-06-17] MEDS: BUSPIRONE 5 MG TABLET PO SCH ×3 (09:01→21:45)
[2017-06-17] MEDS: METOPROLOL TARTRATE 50 MG TABLET GT SCH ×2 (09:03→21:43)
[2017-06-17] MEDS: FAMOTIDINE 40 MG/5 ML ORAL SUSP PEG SCH ×2 (09:04→21:45)
[2017-06-17] MEDS: DIGOXIN PED GT SCH (09:04)
[2017-06-17] MEDS: FERROUS SULFATE 220 MG/5 ML ORAL SOL PEG SCH (09:05)
[2017-06-17] MEDS: CETIRIZINE 1 MG/ML ORAL SOL PEG SCH (09:05)
[2017-06-17 09:12] LABS: HEMATOCRIT 42.5 % (34.6-47.8); HEMOGLOBIN 13.3 g/dL (11.7-16.4); WHITE BLOOD COUNT 7.9 x10^3/uL (3.4-10)
[2017-06-17 09:22] LABS: BLOOD UREA NITROGEN 26 mg/dL (7-18)
[2017-06-17] MEDS: ONDANSETRON 2MG/ML, 2ML IVPush PRN (09:23)
[2017-06-17 09:25] LABS: ASPARTATE AMINO TRANSFERASE 70 U/L (15-37)
[2017-06-17] MEDS: INSULIN ASPART 100 UNITS/ML, PEN SQ-INSULIN SCH ×4 (10:00→21:46)
[2017-06-18] MEDS: MEROPENEM 1 GM in SODIUM CHLORIDE 0.9% 100 ML IV SCH ×3 (00:47→18:30)
[2017-06-18] MEDS: LINEZOLID PMX 600MG/300ML 300 ML IV SCH (02:05)
[2017-06-18] MEDS: OXYcodone 5 MG/5 ML ORAL.SOL UDC PEG PRN ×4 (02:05→21:55)
[2017-06-18] MEDS: DILTIAZEM 30 MG TABLET PO SCH ×4 (02:05→21:54)
[2017-06-18] MEDS: ONDANSETRON 2MG/ML, 2ML IVPush PRN ×2 (03:03→09:21)
[2017-06-18] MEDS: methylPREDNISolone SOD SUCC 40 MG/ML IVPush SCH ×3 (06:06→21:54)
[2017-06-18] MEDS: INSULIN ASPART 100 UNITS/ML, PEN SQ-INSULIN SCH ×4 (07:00→21:00)
[2017-06-18] MEDS: SENNA 176 MG/5 ML ORAL SOL PEG SCH (08:53)
[2017-06-18] MEDS: FAMOTIDINE 40 MG/5 ML ORAL SUSP PEG SCH ×2 (08:54→21:55)
[2017-06-18] MEDS: CETIRIZINE 1 MG/ML ORAL SOL PEG SCH (08:54)
[2017-06-18] MEDS: METOPROLOL TARTRATE 50 MG TABLET GT SCH ×2 (08:55→21:55)
[2017-06-18] MEDS: FERROUS SULFATE 220 MG/5 ML ORAL SOL PEG SCH (08:55)
[2017-06-18] MEDS: DIGOXIN PED GT SCH (08:55)
[2017-06-18] MEDS: APIXABAN 5 MG TABLET PO SCH ×2 (08:56→21:55)
[2017-06-18] MEDS: BACLOFEN 10 MG TABLET PO SCH ×2 (08:56→21:55)
[2017-06-18] MEDS: LACTOBACILLUS 1GM/ PACKET PO SCH (08:56)
[2017-06-18] MEDS: BUSPIRONE 5 MG TABLET PO SCH ×3 (08:56→21:55)
[2017-06-18] MEDS: GABAPENTIN 250 MG/5 ML ORAL SOL GT SCH ×3 (08:56→21:55)
[2017-06-18] MEDS: VENLAFAXINE XR 37.5MG CAP.ER.24H PO SCH ×2 (08:56→21:55)
[2017-06-18] MEDS: MICONAZOLE CRM 2%, 15GM TP SCH ×2 (08:57→21:00)
[2017-06-18] MEDS: CLOTRIMAZOLE CRM 1%, 15GM TP SCH ×2 (08:57→21:00)
[2017-06-19] MEDS: MEROPENEM 1 GM in SODIUM CHLORIDE 0.9% 100 ML IV SCH ×3 (00:46→17:52)
[2017-06-19] MEDS: OXYcodone 5 MG/5 ML ORAL.SOL UDC PEG PRN ×5 (02:03→21:33)
[2017-06-19 04:42] LABS: BLOOD UREA NITROGEN 27 mg/dL (7-18)
[2017-06-19 04:46] LABS: ASPARTATE AMINO TRANSFERASE 65 U/L (15-37)
[2017-06-19 04:47] LABS: HEMATOCRIT 43.8 % (34.6-47.8); HEMOGLOBIN 13.9 g/dL (11.7-16.4); WHITE BLOOD COUNT 9.6 x10^3/uL (3.4-10)
[2017-06-19] MEDS: DILTIAZEM 30 MG TABLET PO SCH ×4 (04:50→23:10)
[2017-06-19] MEDS: methylPREDNISolone SOD SUCC 40 MG/ML IVPush SCH ×2 (06:27→18:00)
[2017-06-19] MEDS: INSULIN ASPART 100 UNITS/ML, PEN SQ-INSULIN SCH ×4 (07:00→21:00)
[2017-06-19] MEDS: SENNA 176 MG/5 ML ORAL SOL PEG SCH (09:00)
[2017-06-19] MEDS: ONDANSETRON 2MG/ML, 2ML IVPush PRN (09:28)
[2017-06-19] MEDS: CLOTRIMAZOLE CRM 1%, 15GM TP SCH ×2 (10:30→21:33)
[2017-06-19] MEDS: MICONAZOLE CRM 2%, 15GM TP SCH ×2 (10:30→21:33)
[2017-06-19] MEDS: LACTOBACILLUS 1GM/ PACKET PO SCH (10:45)
[2017-06-19] MEDS: APIXABAN 5 MG TABLET PO SCH ×2 (10:45→21:31)
[2017-06-19] MEDS: VENLAFAXINE XR 37.5MG CAP.ER.24H PO SCH ×2 (10:45→21:32)
[2017-06-19] MEDS: FERROUS SULFATE 220 MG/5 ML ORAL SOL PEG SCH (10:46)
[2017-06-19] MEDS: BACLOFEN 10 MG TABLET PO SCH ×2 (10:46→21:32)
[2017-06-19] MEDS: FAMOTIDINE 40 MG/5 ML ORAL SUSP PEG SCH ×2 (10:46→21:32)
[2017-06-19] MEDS: CETIRIZINE 1 MG/ML ORAL SOL PEG SCH (10:46)
[2017-06-19] MEDS: BUSPIRONE 5 MG TABLET PO SCH ×3 (10:47→21:31)
[2017-06-19] MEDS: DIGOXIN PED GT SCH (10:48)
[2017-06-19] MEDS: GABAPENTIN 250 MG/5 ML ORAL SOL GT SCH ×3 (10:48→21:32)
[2017-06-19] MEDS: METOPROLOL TARTRATE 50 MG TABLET GT SCH ×2 (10:48→21:31)
[2017-06-20] MEDS: MEROPENEM 1 GM in SODIUM CHLORIDE 0.9% 100 ML IV SCH ×3 (01:27→18:15)
[2017-06-20] MEDS: OXYcodone 5 MG/5 ML ORAL.SOL UDC PEG PRN ×5 (03:03→23:31)
[2017-06-20] MEDS: DILTIAZEM 30 MG TABLET PO SCH ×4 (04:39→23:30)
[2017-06-20 04:44] LABS: BLOOD UREA NITROGEN 33 mg/dL (7-18)
[2017-06-20 05:00] LABS: HEMATOCRIT 47.5 % (34.6-47.8); HEMOGLOBIN 14.9 g/dL (11.7-16.4); WHITE BLOOD COUNT 16.4 x10^3/uL (3.4-10)
[2017-06-20] MEDS: methylPREDNISolone SOD SUCC 40 MG/ML IVPush SCH (06:16)
[2017-06-20] MEDS: INSULIN ASPART 100 UNITS/ML, PEN SQ-INSULIN SCH ×4 (07:00→21:27)
[2017-06-20] MEDS: FERROUS SULFATE 220 MG/5 ML ORAL SOL PEG SCH (09:43)
[2017-06-20] MEDS: SENNA 176 MG/5 ML ORAL SOL PEG SCH (09:43)
[2017-06-20] MEDS: CETIRIZINE 1 MG/ML ORAL SOL PEG SCH (09:44)
[2017-06-20] MEDS: METOPROLOL TARTRATE 50 MG TABLET GT SCH ×2 (09:44→21:29)
[2017-06-20] MEDS: GABAPENTIN 250 MG/5 ML ORAL SOL GT SCH ×3 (09:44→21:29)
[2017-06-20] MEDS: VENLAFAXINE XR 37.5MG CAP.ER.24H PO SCH ×2 (09:44→21:27)
[2017-06-20] MEDS: FAMOTIDINE 40 MG/5 ML ORAL SUSP PEG SCH ×2 (09:44→21:28)
[2017-06-20] MEDS: DIGOXIN PED GT SCH (09:45)
[2017-06-20] MEDS: BACLOFEN 10 MG TABLET PO SCH ×2 (09:45→21:29)
[2017-06-20] MEDS: MICONAZOLE CRM 2%, 15GM TP SCH ×2 (09:45→21:30)
[2017-06-20] MEDS: BUSPIRONE 5 MG TABLET PO SCH ×3 (09:45→21:29)
[2017-06-20] MEDS: APIXABAN 5 MG TABLET PO SCH ×2 (09:45→21:29)
[2017-06-20] MEDS: LACTOBACILLUS 1GM/ PACKET PO SCH (09:45)
[2017-06-20] MEDS: CLOTRIMAZOLE CRM 1%, 15GM TP SCH ×2 (09:46→21:30)
[2017-06-21] MEDS: MEROPENEM 1 GM in SODIUM CHLORIDE 0.9% 100 ML IV SCH ×3 (01:27→17:17)
[2017-06-21] MEDS: OXYcodone 5 MG/5 ML ORAL.SOL UDC PEG PRN ×5 (04:18→23:53)
[2017-06-21 04:24] LABS: HEMATOCRIT 46.5 % (34.6-47.8); HEMOGLOBIN 14.5 g/dL (11.7-16.4); WHITE BLOOD COUNT 18.3 x10^3/uL (3.4-10)
[2017-06-21 04:35] LABS: BLOOD UREA NITROGEN 35 mg/dL (7-18)
[2017-06-21 04:38] LABS: ASPARTATE AMINO TRANSFERASE 76 U/L (15-37)
[2017-06-21] MEDS: DILTIAZEM 30 MG TABLET PO SCH ×4 (06:20→23:53)
[2017-06-21] MEDS ORDERED: methylPREDNISolone SOD SUCC 40 MG/ML IVPush SCH (09:00)
[2017-06-21] MEDS: FERROUS SULFATE 220 MG/5 ML ORAL SOL PEG SCH (09:32)
[2017-06-21] MEDS: FAMOTIDINE 40 MG/5 ML ORAL SUSP PEG SCH ×2 (09:32→20:44)
[2017-06-21] MEDS: CETIRIZINE 1 MG/ML ORAL SOL PEG SCH (09:32)
[2017-06-21] MEDS: GABAPENTIN 250 MG/5 ML ORAL SOL GT SCH ×3 (09:32→20:44)
[2017-06-21] MEDS: DIGOXIN PED GT SCH (09:33)
[2017-06-21] MEDS: BACLOFEN 10 MG TABLET PO SCH ×2 (09:33→20:43)
[2017-06-21] MEDS: METOPROLOL TARTRATE 50 MG TABLET GT SCH ×2 (09:34→20:44)
[2017-06-21] MEDS: VENLAFAXINE XR 37.5MG CAP.ER.24H PO SCH ×2 (09:34→20:43)
[2017-06-21] MEDS: APIXABAN 5 MG TABLET PO SCH ×2 (09:34→20:44)
[2017-06-21] MEDS: LACTOBACILLUS 1GM/ PACKET PO SCH (09:34)
[2017-06-21] MEDS: BUSPIRONE 5 MG TABLET PO SCH ×3 (09:35→20:44)
[2017-06-21] MEDS: SENNA 176 MG/5 ML ORAL SOL PEG SCH (09:48)
[2017-06-21] MEDS: INSULIN ASPART 100 UNITS/ML, PEN SQ-INSULIN SCH ×4 (09:49→20:42)
[2017-06-21] MEDS: MICONAZOLE CRM 2%, 15GM TP SCH ×2 (13:15→20:45)
[2017-06-21] MEDS: CLOTRIMAZOLE CRM 1%, 15GM TP SCH ×2 (13:16→20:45)
[2017-06-22] MEDS: MEROPENEM 1 GM in SODIUM CHLORIDE 0.9% 100 ML IV SCH ×2 (01:00→09:50)
[2017-06-22] MEDS: DILTIAZEM 30 MG TABLET PO SCH ×2 (05:55→12:22)
[2017-06-22] MEDS: OXYcodone 5 MG/5 ML ORAL.SOL UDC PEG PRN ×2 (06:00→09:55)
[2017-06-22] MEDS: INSULIN ASPART 100 UNITS/ML, PEN SQ-INSULIN SCH ×2 (07:00→12:22)
[2017-06-22] MEDS ORDERED: methylPREDNISolone SOD SUCC 40 MG/ML IVPush SCH (09:00)
[2017-06-22] MEDS: VENLAFAXINE XR 37.5MG CAP.ER.24H PO SCH (09:00)
[2017-06-22] MEDS: GABAPENTIN 250 MG/5 ML ORAL SOL GT SCH (09:51)
[2017-06-22] MEDS: BACLOFEN 10 MG TABLET PO SCH (09:51)
[2017-06-22] MEDS: APIXABAN 5 MG TABLET PO SCH (09:51)
[2017-06-22] MEDS: BUSPIRONE 5 MG TABLET PO SCH (09:51)
[2017-06-22] MEDS: FAMOTIDINE 40 MG/5 ML ORAL SUSP PEG SCH (09:52)
[2017-06-22] MEDS: LACTOBACILLUS 1GM/ PACKET PO SCH (09:52)
[2017-06-22] MEDS: CETIRIZINE 1 MG/ML ORAL SOL PEG SCH (09:52)
[2017-06-22] MEDS: FERROUS SULFATE 220 MG/5 ML ORAL SOL PEG SCH (09:54)
[2017-06-22] MEDS: DIGOXIN PED GT SCH (09:54)
[2017-06-22] MEDS: METOPROLOL TARTRATE 50 MG TABLET GT SCH (09:55)
[2017-06-22] MEDS: CLOTRIMAZOLE CRM 1%, 15GM TP SCH (09:56)
[2017-06-22] MEDS: MICONAZOLE CRM 2%, 15GM TP SCH (09:56)
[2017-06-22] MEDS: SENNA 176 MG/5 ML ORAL SOL PEG SCH (09:56)
[2017-06-22] MEDS ORDERED: BACL-19 PO (14:04)
[2017-06-22] MEDS ORDERED: MICO14CR TP (14:04)
[2017-06-22] MEDS ORDERED: BUSP5TAB2 PO (14:04)
[2017-06-22] MEDS ORDERED: VENL37.52 PO (14:04)
[2017-06-22] MEDS ORDERED: METO50TA82 GT (14:04)
[2017-06-22] MEDS ORDERED: FERR220S6 PEG (14:04)
[2017-06-22] MEDS ORDERED: ACID1GRA3 PO (14:04)
[2017-06-22] MEDS ORDERED: POLY17PO5 PO (14:04)
[2017-06-22] MEDS ORDERED: CETI-237 PEG (14:04)
[2017-06-22] MEDS ORDERED: DIGO50SO2 GT (14:04)
[2017-06-22] MEDS ORDERED: CLOT15CR5 TP (14:04)
[2017-06-22] MEDS ORDERED: GABA250S3 GT (14:04)
[2017-06-22] MEDS ORDERED: ALPR0.254 PO (14:04)
[2017-06-22] MEDS ORDERED: TRAM50TA2 PO (14:04)
[2017-06-22] MEDS ORDERED: OXYC5SOL8 PEG (14:04)
[2017-06-22] MEDS ORDERED: APIX5TAB PO (14:04)
== END 2017-06-22 14:30 | disposition home health service (06) | DRG 871 ==
LOC: ED 18:29 → EDIP 18:46 → SUATTDRO 18:51 → CCU 20:25
PROVIDERS: ADMIT Family Medicine; ATTEND Family Medicine
PROC: 0T9B70Z Drainage of Bladder with Drainage Device, Via Natural or Artificial Opening (ICD-10-PCS; principal; 2017-06-05)
DX: A41.9 Sepsis, unspecified organism (principal); J96.21 Acute and chronic respiratory failure with hypoxia; E43 Unspecified severe protein-calorie malnutrition; E87.2 Acidosis; Z93.0 Tracheostomy status; L89.329 Pressure ulcer of left buttock, unspecified stage; J18.9 Pneumonia, unspecified organism; G82.20 Paraplegia, unspecified; I27.2 Other secondary pulmonary hypertension; Z99.81 Dependence on supplemental oxygen; I48.92 Unspecified atrial flutter; N39.0 Urinary tract infection, site not specified; Z68.42 Body mass index [BMI] 45.0-49.9, adult; M86.8X8 Other osteomyelitis, other site; I50.9 Heart failure, unspecified; E11.69 Type 2 diabetes mellitus with other specified complication; E11.9 Type 2 diabetes mellitus without complications; G47.33 Obstructive sleep apnea (adult) (pediatric); R13.10 Dysphagia, unspecified; Z51.5 Encounter for palliative care; F41.9 Anxiety disorder, unspecified; E66.01 Morbid (severe) obesity due to excess calories; I48.2 Chronic atrial fibrillation; B96.89 Other specified bacterial agents as the cause of diseases classified elsewhere; B96.1 Klebsiella pneumoniae [K. pneumoniae] as the cause of diseases classified elsewhere; Z16.12 Extended spectrum beta lactamase (ESBL) resistance; B95.2 Enterococcus as the cause of diseases classified elsewhere; Z93.3 Colostomy status; Z91.018 Allergy to other foods; Z91.048 Other nonmedicinal substance allergy status; Z83.3 Family history of diabetes mellitus; Z79.899 Other long term (current) drug therapy; Z87.01 Personal history of pneumonia (recurrent)
CPT/HCPCS: 36415; 36600; 71010; 74230; 80048; 80053; 80162; 80307; 81001; 82803; 82962; 83605; 83735; 83880; 84100; 84443; 84484; 85025; 85610; 85730; 87040; 87077; 87081; 87086; 87186; 93005; 94002; 94003; 94640; 96365; 96366; 96368; 96375; C8929; J0456; J0696; J1815; J1940; J2020; J2185; J2405; J2543; J7613; G0479; J1120; J2270; J2920; J2930; J7030; J7050

== ENCOUNTER → 2017-09-05 | Outpatient (CLI) | payer MEDICARE, MEDICAID ==
[~2017-09-05] MED LIST: ACID1GRA3 PO; ALPR0.25 PO; ALPR0.254 PO; APIX5TAB PO; BACL-19 PO; BACL20TA PO; BUSP15TA PO; BUSP5TAB2 PO; CALC-451 PO; CALC-534 PO; CETI-237 PEG; CETI-237 PO; CHOL500050 PO; CLOT15CR5 TP; DEXL30CA2 PO; DEXT1DRO7 EACHEYE; DIGO250T PO; DIGO250T86 GT; DIGO50SO2 GT; DILT120T3 PO; DILT120T4 PO; DIVA250T4 PO; ERGO500018 PO; FERR220S6 PEG; FERR300L PO; FURO-92 PO; GABA250S3 GT; GABA300C10 PO; GABA300S GT; LACT1CAP20 PO; LACT1CAP61 PO; LORA10TA3 PO; MAGN400T36 PO; MAGN400T7 PO; METO50TA3 GT; METO50TA82 GT; METO50TA82 PO; MICO142C TP; MICO14CR TP; MULT1TAB60 PO; MV-M1TAB3 GT; ONDA4TAB13 SL; ONDA4TAB7 PO; OXYC5SOL8 PEG; OXYC5TAB2 PO; OXYC5TAB3 PO; PANT40TA5 PO; POLY17PO5 PO; POTA20LI GT; TRAM50TA2 PO; VENL37.52 PO; VENL37.57 PO; [UNRECOGNIZED DRUG - CODE] PO; [UNRECOGNIZED DRUG - CODE] TP
[2017-09-05 15:37] LABS: HEMATOCRIT 38.2 % (34.6-47.8); HEMOGLOBIN 12.1 g/dL (11.7-16.4); WHITE BLOOD COUNT 16.3 x10^3/uL (3.4-10)
[2017-09-05 15:47] LABS: ASPARTATE AMINO TRANSFERASE 42 U/L (15-37); BLOOD UREA NITROGEN 19 mg/dL (7-18)
== END ==
LOC: STAR 14:06
PROVIDERS: ATTEND Urology
DX: Z01.818 Encounter for other preprocedural examination (principal); N20.0 Calculus of kidney; R94.31 Abnormal electrocardiogram [ECG] [EKG]; R79.1 Abnormal coagulation profile
CPT/HCPCS: 36415; 80053; 85025; 85610; 85730; 93005